=== PATIENT | male | born 2000 ===

== ENCOUNTER 2023-07-06 10:47 | Emergency (ER) | payer OTHER ==
[2023-07-06] MEDS ORDERED: Sodium Chloride 0.9% 10 ML Syringe FLUSH PRN (11:16)
[2023-07-06] MEDS ORDERED: Sodium Chloride 0.9% 1,000 ML IV ONE (11:16)
[2023-07-06] MEDS ORDERED: Sodium Chloride 0.9% 2.5 ML Syringe FLUSH PRN (11:16)
[2023-07-06] MEDS ORDERED: Metoclopramide 10 MG/2 ML SDV IVPUSH ONE (11:17)
[2023-07-06] MEDS ORDERED: diphenhydrAMINE 50 MG/ML SDV IVPUSH ONE (11:17)
[2023-07-06 12:03] LABS: BASOPHILS PERCENT AUTO 0.3 % (0.0-1.5); EOSINOPHILS ABSOLUTE AUTO 0.2 K/uL (0.0-0.7); EOSINOPHILS PERCENT AUTO 3.7 % (0.0-7.0); HEMATOCRIT 41.9 % (38.0-50.0); HEMOGLOBIN 14.8 g/dL (13.0-17.0); LYMPHOCYTES ABSOLUTE AUTO 1.3 K/uL (0.6-2.4); LYMPHOCYTES PERCENT AUTO 21.8 % (16.0-40.0); MEAN CORPUSCULAR HEMOGLOBIN 28.8 pg (27.0-32.0); MEAN CORPUSCULAR HGB CONC 35.3 g/dL (31.0-37.0); MEAN CORPUSCULAR VOLUME 81.7 fL (80.0-98.0); MONOCYTES ABSOLUTE AUTO 0.6 K/uL (0.0-0.8); MONOCYTES PERCENT AUTO 9.7 % (0.0-15.0); NEUTROPHILS PERCENT AUTO 64.5 % (48.0-80.0); PLATELET COUNT,PLT 184 K/uL (150-400); RED BLOOD CELL COUNT 5.13 M/uL (4.50-5.90); WHITE BLOOD CELL COUNT,WBC 6.16 K/uL (4.0-11.0)
[2023-07-06 12:44] LABS: CALCIUM 9.2 mg/dL (8.5-10.1); EST CRCL DRUG DOSING (CG) 120.27 mL/min
== END 2023-07-06 13:19 | disposition home or self-care (01) ==
LOC: MW.ED 11:23
DX: R51.9 Headache, unspecified (principal); Z87.820 Personal history of traumatic brain injury
CPT/HCPCS: 36415; 70450; 80048; 85025; 96374; 96375; 99284; J1200; J2765; J3490; J7030